=== PATIENT | female | born 1990 | race Caucasian/White ===

== ENCOUNTER → 2023-08-02 06:43 | Outpatient (REF) | payer OTHER, SELFPAY | LOC: PNTC 06:43 | PROVIDERS: ATTENDING PHYSICIAN Obstetrics & Gynecology | DX: Z36.0 Encounter for antenatal screening for chromosomal anomalies (principal); Z36.82 Encounter for antenatal screening for nuchal translucency | CPT/HCPCS: 76801; 76813 ==

== ENCOUNTER 2024-01-30 00:54 | Inpatient (IN) | payer OTHER, SELFPAY ==
[2024-01-30 01:17] VITALS: BMI 34.9
[2024-01-30 01:31] VITALS: BP 121/82
[2024-01-30 01:51] LABS: % Basophils 0.2 % (0-2); % Eosinophils 1.1 % (0-6); % Immature Granulocytes 0.6 % (0-0.5); % Lymphocytes 21.9 % (20.5-51.1); % Monocytes 6.6 % (1.7-9.3); % Neutrophils 69.6 % (42.2-75.2); Absolute Eosinophils 0.2 10^3/uL (0-0.7); Absolute Immature Granulocytes 0.1 10^3/uL (0-0.05); Absolute Lymphocytes 3.2 10^3/uL (1.2-3.4); Hemoglobin 12.2 g/dL (12.0-16.0); Mean Corp Hgb Conc. 34.9 g/dL (33.0-37.0); Mean Corpuscular Hgb 31.5 pg (27.0-31.0); Mean Corpuscular Volume 90.4 fL (81.0-99.0); Mean Platelet Volume 10.4 fL (7.4-10.4); Nucleated Red Blood Cells % 0 %; Platelet Count 276 10^3/uL (130-400); Red Blood Cell Count 3.87 10^6/uL (4.20-5.40); White Blood Cell Count 14.4 10^3/uL (4.8-10.8)
[2024-01-30] MEDS: LR 1000 IV ×2 (07:30→13:35)
[2024-01-30] MEDS: PITOCIN 30 UNITS/NSS 500 ML IV ×2 (10:08→17:24)
[2024-01-30] MEDS: SUBLIMAZE 100 MCG EPIDURAL (12:17)
[2024-01-30] MEDS: FENTANYL/BUPIVACAINE 100 EPIDURAL (12:17)
[2024-01-30] MEDS: MOTRIN 600 MG PO (19:42)
[2024-01-30] MEDS: TYLENOL 650 MG PO (19:43)
[2024-01-31] MEDS: MOTRIN 600 MG PO ×4 (02:17→22:04)
[2024-01-31] MEDS: TYLENOL 650 MG PO ×4 (02:18→22:04)
[2024-01-31 05:31] LABS: Hematocrit 31.8 % (37.0-47.0); Hemoglobin 10.9 g/dL (12.0-16.0)
[2024-01-31] MEDS: SENOKOT-S 1 TABLET PO (07:46)
[2024-01-31 11:18] LABS: Syphilis/T. pallidum Ab Reflex Negative (Negative)
[2024-02-01] MEDS: M-M-R II 0.5 ML SC (08:31)
[2024-02-01] MEDS: MOTRIN 600 MG PO (08:32)
== END 2024-02-01 12:35 | disposition home or self-care (01) | DRG 807 ==
LOC: LDRP 00:54
PROVIDERS: Obstetrics & Gynecology; ADMITTING PHYSICIAN Obstetrics & Gynecology; ATTENDING PHYSICIAN Obstetrics & Gynecology
PROC: 10E0XZZ Delivery of Products of Conception, External Approach (ICD-10-PCS; 2024-01-30)
PROC: 0KQM0ZZ Repair Perineum Muscle, Open Approach (ICD-10-PCS; 2024-01-30)
DX: O69.3XX0 Labor and delivery complicated by short cord, not applicable or unspecified (principal); Z37.0 Single live birth; O70.1 Second degree perineal laceration during delivery; Z3A.38 38 weeks gestation of pregnancy; O99.893 Other specified diseases and conditions complicating puerperium; R03.0 Elevated blood-pressure reading, without diagnosis of hypertension
CPT/HCPCS: 88307; 85014; 85018; 85025; 86780; 86850; 86900; 86901; 90707

== ENCOUNTER 2024-04-06 07:14 | Outpatient (RCR) | payer OTHER, SELFPAY | END 2024-04-06 23:59 | disposition home or self-care (01) | LOC: RPT 07:14 | PROVIDERS: ATTENDING PHYSICIAN Obstetrics & Gynecology; FAMILY PHYSICIAN Family Medicine | DX: N39.3 Stress incontinence (female) (male) (principal); N94.10 Unspecified dyspareunia; R10.2 Pelvic and perineal pain; M62.89 Other specified disorders of muscle; Z73.6 Limitation of activities due to disability | CPT/HCPCS: 97163; 97530 ==